=== PATIENT | female | born 1995 ===

== ENCOUNTER 2017-07-18 20:51 | Emergency (ER) | payer OTHER ==
[2017-07-18 21:12] VITALS: BP 109/70; PULSE 70; RESP 20; TEMP 98; O2SAT 100
[2017-07-18 21:31] LABS: SQUAMOUS EPITHIAL 4 /hpf (0-5); URINE BACTERIA RARE (<OCC); URINE BILIRUBIN NEGATIVE (NEGATIVE); URINE BLOOD 1+ (NEGATIVE); URINE CLARITY Clear (Clear); URINE COLOR Amber (YELLOW); URINE GLUCOSE (UA) NORMAL (Normal); URINE LEUKOCYTE ESTERASE NEG Leu/uL (Negative); URINE PROTEIN NEGATIVE (NEGATIVE)
--- NOTE | 2017-07-18 22:25 | C.PDOC ---
History Of Present Illness 21 year old female presents to the ED c/o suprapubic pain, urinary frequency and minimal dysuria for the past 3 days. Patient state she called her PMD informed him about the symptoms and she was prescribed Macrobid. Patient states she has been taking the macrobid for the past 2 days with symptoms improving. Patient is now also c/o nasal congestion, mild cough. Patient denies fever, chills, SOB, nausea, vomit, hematuria, rash. Time Seen by Provider: 07/18/17 21:18 Chief Complaint (Nursing): Female Genitourinary History Per: Patient History/Exam Limitations: None Onset/Duration Of Symptoms: Days Current Symptoms Are (Timing): Still Present Anticoagulant/Antiplatlet Use?: No Recent Aspirin Use: No Past Medical History Reviewed: Historical Data, Nursing Documentation, Vital Signs Vital Signs: Last Vital Signs Temp 98.0 F 07/18/17 21:04 Pulse 70 07/18/17 21:04 Resp 20 07/18/17 22:30 BP 109/70 07/18/17 21:04 Pulse Ox 100 07/18/17 23:04 - Medical History PMH: Anxiety, Asthma Surgical History: No Surg Hx Family History: States: Unknown Family Hx - Social History Hx Alcohol Use: Yes Hx Substance Use: No - Immunization History Hx Tetanus Toxoid Vaccination: No Hx Influenza Vaccination: No Review Of Systems Constitutional: Negative for: Fever, Chills ENT: Positive for: Nose Congestion Respiratory: Positive for: Cough Gastrointestinal: Positive for: Abdominal Pain. Negative for: Nausea, Vomiting Genitourinary: Positive for: Dysuria, Frequency. Negative for: Hematuria Musculoskeletal: Negative for: Back Pain Skin: Negative for: Rash Physical Exam - Physical Exam Appears: Non-toxic, No Acute Distress Skin: Normal Color, Warm, Dry Head: Atraumatic, Normacephalic Eye(s): bilateral: Normal Inspection Ear(s): Bilateral: Normal Nose: No Discharge Oral Mucosa: Moist Throat: Normal, No Erythema, No Exudate Neck: Normal ROM, Supple Chest: Symmetrical Cardiovascular: Rhythm Regular, No Murmur Respiratory: Normal Breath Sounds, No Rales, No Rhonchi, No Wheezing Gastrointestinal/Abdominal: Soft, No Tenderness, No Guarding, No Rebound Back: No CVA Tenderness Extremity: Normal ROM Neurological/Psych: Oriented x3, Normal Speech Gait: Steady ED Course And Treatment O2 Sat by Pulse Oximetry: 100 (ON RA) Pulse Ox Interpretation: Normal Progress Note: Plan: - UA. Patient was advised to continue taking the macrobid and was given prescriptions for her URI symptoms. On reassessment, patient is resting comfortably, and is in no acute distress. Patient was instructed to follow up with physician/clinic in 1-2 days for further evaluation. Disposition Counseled Patient/Family Regarding: Diagnosis, Need For Followup, Rx Given - Disposition Referrals: Hal Burnette MD [Medical Doctor] - Disposition: HOME/ ROUTINE Disposition Time: 22:22 Condition: STABLE Additional Instructions: Please follow up with PMD Continue macrobid Motrin for pain Use zyrtec chewable tabs for congestion Use nasonex as directed Return to ER if worse Prescriptions: Mometasone Furoate [Nasonex] 2 spray NS DAILY #1 bottle Instructions: Viral Upper Respiratory Infection, Adult (DC), Acute Cystitis (DC ) Forms: [employer] (Panamanian) - Clinical Impression Clinical Impression: Upper respiratory infection, UTI (urinary tract infection) - 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 - Scribe Statement The provider has reviewed the documentation as recorded by the Scribe Burton Mata All medical record entries made by the Victor Hugoiblizbeth were at my direction and personally dictated by me. I have reviewed the chart and agree that the record accurately reflects my personal performance of the history, physical exam, medical decision making, and the department course for this patient. I have also personally directed, reviewed, and agree with the discharge instructions and disposition.
== END 2017-07-18 22:29 | disposition home or self-care (01) ==
LOC: C.ER 20:51
DX: J06.9 Acute upper respiratory infection, unspecified (principal); N39.0 Urinary tract infection, site not specified